=== PATIENT | male | born 1975 | race Caucasian/White ===

== ENCOUNTER 2018-03-10 11:22 | Emergency (ER) | payer BC ==
[2018-03-10 11:51] VITALS: BP 127/73
[2018-03-10] MEDS ORDERED: Albuterol 2.5 MG/3 ML NEB.SOL* (0.083%) INH ONE (12:16)
--- NOTE | 2018-03-10 12:17 | UC ---
UC General HPI - HPI Summary HPI Summary: PT C/O SORE THROAT X 5 DAYS. + COUGH X 4 YEARS. ADMITS TO SOME SOB AND WHEEZING. SMOKES X SEVERAL YEARS. NO ASTHMA OR COPD DX. HAS NEW APPT [facility] IN 6 DAYS. - History of Current Complaint Chief Complaint: UCRespiratory Stated Complaint: SORE THROAT,COUGH Time Seen by Provider: 03/10/18 12:11 Hx Obtained From: Patient, Family/Display Mechanic Pain Intensity: 7 Associated Signs & Symptoms: Negative: Chest Pain, Fever - Allergy/Home Medications Allergies/Adverse Reactions: Allergies Allergy/AdvReac Type Severity Reaction Status Date / Time No Known Allergies Allergy Verified 03/10/18 11:45 PMH/Surg Hx/FS Hx/Imm Hx Previously Healthy: Yes - Surgical History Surgical History: None - Social History Lives: With Family Alcohol Use: Daily Alcohol Amount: 10-12 drinks/day Substance Use Type: Marijuana Substance Use Comment - Amount & Last Used: Daily Smoking Status (MU): Heavy Every Day Tobacco Smoker Type: Cigarettes Amount Used/How Often: 1 PPD Length of Time of Smoking/Using Tobacco: since 17 y/o - Immunization History Most Recent Tetanus Shot: unsure Review of Systems All Other Systems Reviewed And Are Negative: Yes Constitutional: Positive: Negative Skin: Positive: Negative Eyes: Positive: Negative ENT: Positive: Sore Throat Respiratory: Positive: Cough Cardiovascular: Positive: Negative Gastrointestinal: Positive: Negative Genitourinary: Positive: Negative Motor: Positive: Negative Neurovascular: Positive: Negative Musculoskeletal: Positive: Negative Neurological: Positive: Negative Psychological: Positive: Negative Physical Exam Triage Information Reviewed: Yes Appearance: Well-Appearing Vital Signs: Initial Vital Signs Temp 98.3 F 03/10/18 11:45 Pulse 58 03/10/18 11:45 Resp 22 03/10/18 11:45 BP 127/73 03/10/18 11:45 Pulse Ox 96 03/10/18 11:45 Vital Signs Reviewed: Yes Eyes: Positive: Conjunctiva Clear ENT: Positive: Pharyngeal erythema, TMs normal, Uvula midline. Negative: Nasal congestion, Nasal drainage, Trismus, Muffled voice, Hoarse voice Neck: Positive: Supple, Nontender, Enlarged Nodes @ - PERITONSILAR Respiratory: Positive: No respiratory distress, Decreased breath sounds Cardiovascular: Positive: RRR, No Murmur Abdomen Description: Positive: Nontender, No Organomegaly, Soft Bowel Sounds: Positive: Present Musculoskeletal: Positive: ROM Intact Neurological: Positive: Alert Psychological: Positive: Age Appropriate Behavior Skin Exam: Normal Diagnostics - Laboratory Diagnostic Studies Completed/Ordered: rapid strep=negative - Radiology No standard instances Radiology Interpretation Completed By: Radiologist - CXR=HYPERINFLATION, CONSISTENT WITH COPD. NO ACTIVE CARDIOPULMONARY DISEASE. Course/Dx - Differential Dx - Multi-Symptom Differential Diagnoses: Other - sore throat=viral, bacterial, irritation from smoking, CA from smoking. rapid strep=neg and TC pending. pt advised of need for close f/u to resolution given long hx of smoking. He has an appt this coming friday. cough=COPD changes on cxr and improved with albuterol. will tx with mdi and augmentin. - Diagnoses Provider Diagnosis: Sore throat, COPD (chronic obstructive pulmonary disease) Discharge - Sign-Out/Discharge Documenting (check all that apply): Patient Departure All imaging exams completed and their final reports reviewed: Yes - Discharge Plan Condition: Stable Disposition: HOME Prescriptions: Albuterol HFA INHALER* [Ventolin HFA Inhaler*] 2 puff INH Q6H #1 mdi Amoxicillin/Clavulanate TAB* [Augmentin TAB 875*] 875 mg PO BID 10 Days #20 tab Patient Education Materials: COPD (Chronic Obstructive Pulmonary Disease) (ED) , Pharyngitis (ED) Additional Instructions: FOLLOW UP WITH N SCHEDULED FOR THIS COMING FRIDAY. - Billing Disposition and Condition Condition: STABLE Disposition: Home
== END 2018-03-10 13:34 | disposition home or self-care (01) ==
LOC: UCCORT 11:22
DX: J44.9 Chronic obstructive pulmonary disease, unspecified (principal); J02.9 Acute pharyngitis, unspecified; F17.210 Nicotine dependence, cigarettes, uncomplicated
CPT/HCPCS: 71046; 87070; 87651; 99202; G0463